=== PATIENT | male | born 1955 | race Caucasian/White ===

== ENCOUNTER 2020-12-25 08:07 | Emergency (ER) | payer MEDICARE ==
[2020-12-25 08:58] LABS: Protime INR 1.13
[2020-12-25 09:00] LABS: Absolute Lymphocytes (CBC) 1.5 K/uL (0.7-4.9); Basophils % 0.2 % (0-1.3); Hematocrit 37.9 % (39.6-49.0); Lymphocytes % 12.8 % (15.3-44.8); MPV 9.4 fL (7.6-11.3)
--- NOTE | 2020-12-25 09:14 | RAD REPORT ---
EXAM DESCRIPTION: CT - Head Brain Wo Cont - 12/25/2020 8:56 am CLINICAL HISTORY: Dizziness and weakness COMPARISON: None TECHNIQUE: Computed axial tomography of the head was obtained. IV contrast was not requested. All CT scans are performed using dose optimization technique as appropriate and may include automated exposure control or mA/KV adjustment according to patient size. FINDINGS: An intracranial bleed is not seen . The ventricles are normal in caliber. No extra-axial fluid collection is noted. Fluid within the sinuses/ mastoids is not seen. IMPRESSION: No acute intracranial abnormality is seen. If patient's symptoms persist MRI of the bra in would be recommended.
[2020-12-25 09:15] LABS: ALT/SGPT 15 U/L (12-78); AST/SGOT 12 U/L (15-37); Albumin 3.1 g/dL (3.4-5.0); Alkaline Phosphatase 65 U/L (45-117); BUN Blood Urea Nitrogen 29 mg/dL (7-18); Bicarbonate 22 mmol/L (21-32); Bilirubin Direct 0.3 mg/dL (0-0.2); Glucose Level 255 mg/dL (74-106); Magnesium 1.8 mg/dL (1.8-2.4); NT PRO-BNP 497 pg/mL (<125); Protein, Total 7.1 g/dL (6.4-8.2); Sodium Level 134 mmol/L (136-145); Troponin (Emerg Dept Use Only) < 0.02 ng/mL (0.0-0.045)
--- NOTE | 2020-12-25 10:10 | ER ---
Nurse's Notes [facility] Name: Isaías Baez Age: 65 yrs Sex: Male : 1955 Arrival Date: 12/25/2020 Time: 08:10 Bed 6 Private MD: Diagnosis: Syncope and collapse Presentation: 12/25 08:12 Chief complaint: Patient states: dizziness and generalized weakness since Saturday. sv Reports that his BS have been fluctuating in the 200-300s and has been taking more of his Toujeo. Stated he fell getting up to go to the bathroom on Saturday. He has lost 15 pounds since but has been actively trying to lose weight. Coronavirus screen: Client denies travel out of the [place] in the last 14 days. At this time, the client does not indicate any symptoms associated with coronavirus-19. Ebola Screen: No symptoms or risks identified at this time. Initial Sepsis Screen: Does the patient meet any 2 criteria? No. Patient's initial sepsis screen is negative. Does the patient have a suspected source of infection? No. Patient's initial sepsis screen is negative. Risk Assessment: Do you want to hurt yourself or someone else? Patient reports no desire to harm self or others. Onset of symptoms was December 23, 2020. 08:12 Method Of Arrival: Wheelchair sv 08:12 Acuity: HAROON 2 sv Triage Assessment: 08:12 General: Appears in no apparent distress. comfortable, well groomed, well developed, sv Behavior is calm, cooperative, appropriate for age. Pain: Denies pain. Neuro: Level of Consciousness is awake, alert, obeys commands, Oriented to person, place, time, situation, Moves all extremities. Full function Gait is steady, with his cane. Speech is normal. Cardiovascular: Patient's skin is warm and dry. Rhythm is sinus rhythm. Respiratory: Airway is patent Respiratory effort is even, unlabored, Respiratory pattern is regular, symmetrical. Derm: Skin is intact, Skin is pink, warm \\T\\ dry. Musculoskeletal: Range of motion: intact in all extremities. Historical: - Allergies: 08:35 Avelox; sv - Home Meds: 08:35 albuterol sulfate 2.5 mg /3 mL (0.083 %) Nebulizer nebu Q12h prn [Active]; allopurinol sv 100 mg Oral tab 1 tab once daily [Active]; carvedilol 12.5 mg oral tab daily [Active]; clopidogrel 75 mg oral tab 1 tab once daily [Active]; gabapentin 100 mg oral cap nightly [Active]; levothyroxine 100 mcg tab 1 tab once daily [Active]; lisinopril 5 mg Oral tab 1 tab once daily [Active]; omega-3 gummies 1 tab daily [Active]; pioglitazone 30 mg oral tab 1 tab once daily [Active]; rosuvastatin 20 mg oral tab 1 tab once daily [Active]; Spiriva Respimat 2.5 mcg/actuation inhalation mist daily prn [Active]; tamsulosin 0.4 mg oral cp24 1 cap once daily [Active]; Toujeo SoloStar 300 unit/mL (1.5 mL) subcutaneous inpn daily [Active]; - PMHx: 08:35 Gout; High Cholesterol; Hypertension; Hypothyroidism; Myocardial infarction; Diabetes - sv IDDM; - PSHx: 08:35 angioplasty , x3 stents; shoulder repair; cardiac stents; LLE stents x 2; RLE stent x 1;sv - Immunization history:: Flu vaccine is up to date. - Social history:: Smoking status: Patient reports use of chewing tobacco. Screenin:15 Abuse screen: Denies threats or abuse. Denies injuries from another. Nutritional sv screening: No deficits noted. Tuberculosis screening: No symptoms or risk factors identified. Fall Risk None identified. Assessment: 08:50 Reassessment: Patient appears in no apparent distress at this time. No changes from sv previously documented assessment. Patient and/or family updated on plan of care and expected duration. Pain level reassessed. Patient is alert, oriented x 3, equal unlabored respirations, skin warm/dry/pink. 10:28 Reassessment: Waiting for Dr Vaughan to input admission orders. sv 11:20 Reassessment: Called and spoke with Dr Vaughan to see about admission orders. He stated sv that Dr Claudio is supposed to be getting a hold of Dr Marquez. 11:30 Reassessment: Patient appears in no apparent distress at this time. No changes from sv previously documented assessment. Patient and/or family updated on plan of care and expected duration. Pain level reassessed. Patient is alert, oriented x 3, equal unlabored respirations, skin warm/dry/pink. Vital Signs: 08:12 BP 94 / 76; Pulse 89; Resp 16; Temp 99.1; Pulse Ox 96% ; Weight 97.98 kg; Height 5 ft. sv 9 in. (175.26 cm); Pain 0/10; 08:40 BP 113 / 72 LA Supine (auto/lg); Pulse 86; sv 08:42 BP 122 / 72 LA Sitting (auto/lg); Pulse 87; sv 08:44 BP 120 / 76 LA Standing (auto/lg); Pulse 90; sv 09:31 BP 118 / 64; Pulse 84; Resp 20; Pulse Ox 95% on R/A; sv 10:34 BP 107 / 71; Pulse 86 MON; Resp 17; Pulse Ox 95% on R/A; sv 11:24 BP 116 / 71; Pulse 79; Resp 24; Pulse Ox 95% on R/A; sv 08:12 Body Mass Index 31.90 (97.98 kg, 175.26 cm) sv 10:34 Sinus Rhythm with Occasional PVCs sv ED Course: 08:10 Patient arrived in ED. rg4 08:12 Joel Claudio MD is Attending Physician. tw4 08:12 Arm band placed on Patient placed in an exam room, on a stretcher, on teacher of the visually impaired, sv on pulse oximetry. 08:12 Patient has correct armband on for positive identification. Placed in gown. Bed in low sv position. Call light in reach. Side rails up X 1. computer analyst on. Pulse ox on. NIBP on. Door closed. Warm blanket given. Head of bed elevated. 08:22 Jessica Newman, RN is Primary Nurse. sv 08:27 ED physician to see patient. sv 08:30 Triage completed. sv 08:34 Initial lab(s) drawn, by me, sent to lab. Inserted saline lock: 20 gauge in right dh3 antecubital area, using aseptic technique. Blood collected. 08:44 EKG done, by ED staff, reviewed by Joel Claudio MD. 3 08:49 COVID-19 : Document "Date of Symptom Onset" if Symptomatic. Sent. sv 08:49 Basic Metabolic Panel Sent. sv 08:[address] via wheelchair. sv 08:50 CBC with Diff Sent. sv 08:50 LFT's Sent. sv 08:50 Magnesium Sent. sv 08:50 NT PRO-BNP Sent. sv 08:50 PT-INR Sent. sv 08:50 Troponin (emerg Dept Use Only) Sent. sv 08:50 COVID swab sent to lab. sv 09:06 Patient moved back from radiology. sv 09:06 Awaiting lab results, Awaiting radiology results. sv 09:41 CT Head Brain wo Cont Sent. sv 09:41 XRAY Chest (1 view) Sent. sv 10:08 Jasmeet Vaughan is Hospitalizing Provider. tw4 10:27 CORONAVIRUS Sent. sv Administered Medications: No medications were administered Outcome: 10:09 Decision to Hospitalize by Provider. tw4 11:59 Patient left the ED. Signatures: Jessica Newman RN RN Debbi Bae, Kelsey Simon RN 4 Edwin, Kady 3 Joel Claudio MD MD tw4
--- NOTE | 2020-12-25 10:10 | EDPHYS ---
Physician Documentation [facility] Name: Isaías Baez Age: 65 yrs Sex: Male : 1955 Arrival Date: 12/25/2020 Time: 08:10 Bed 6 Private MD: ED Physician Joel Claudio HPI: 12/25 09:50 This 65 yrs old Male presents to ER via Wheelchair with complaints of tw4 Weakness, Dizziness. 09:50 The patient presents to the emergency department with weakness of the entire body, tw4 generalized weakness. Context: occurred at home. Historical: - Allergies: 08:35 Avelox; sv - Home Meds: 08:35 albuterol sulfate 2.5 mg /3 mL (0.083 %) Nebulizer nebu Q12h prn [Active]; allopurinol sv 100 mg Oral tab 1 tab once daily [Active]; carvedilol 12.5 mg oral tab daily [Active]; clopidogrel 75 mg oral tab 1 tab once daily [Active]; gabapentin 100 mg oral cap nightly [Active]; levothyroxine 100 mcg tab 1 tab once daily [Active]; lisinopril 5 mg Oral tab 1 tab once daily [Active]; omega-3 gummies 1 tab daily [Active]; pioglitazone 30 mg oral tab 1 tab once daily [Active]; rosuvastatin 20 mg oral tab 1 tab once daily [Active]; Spiriva Respimat 2.5 mcg/actuation inhalation mist daily prn [Active]; tamsulosin 0.4 mg oral cp24 1 cap once daily [Active]; Toujeo SoloStar 300 unit/mL (1.5 mL) subcutaneous inpn daily [Active]; - PMHx: 08:35 Gout; High Cholesterol; Hypertension; Hypothyroidism; Myocardial infarction; Diabetes - sv IDDM; - PSHx: 08:35 angioplasty , x3 stents; shoulder repair; cardiac stents; LLE stents x 2; RLE stent x 1;sv - Immunization history:: Flu vaccine is up to date. - Social history:: Smoking status: Patient reports use of chewing tobacco. ROS: 16:34 Constitutional: Negative for fever, chills, and weight loss, Eyes: Negative for injury, tw4 pain, redness, and discharge, Cardiovascular: Negative for chest pain, palpitations, and edema, Respiratory: Negative for shortness of breath, cough, wheezing, and pleuritic chest pain, Abdomen/GI: Negative for abdominal pain, nausea, vomiting, diarrhea, and constipation, Back: Negative for injury and pain, MS/Extremity: Negative for injury and deformity, Skin: Negative for injury, rash, and discoloration. 16:34 Neuro: Positive for dizziness, weakness, Negative for altered mental status, gait disturbance, headache, hearing loss, loss of consciousness, numbness, seizure activity, speech changes, syncope, near syncope, tingling, tinnitus, tremor, visual changes. Exam: 16:34 Constitutional: This is a well developed, well nourished patient who is awake, alert, tw4 and in no acute distress. Head/Face: Normocephalic, atraumatic. Chest/axilla: Normal chest wall appearance and motion. Nontender with no deformity. No lesions are appreciated. Cardiovascular: Regular rate and rhythm with a normal S1 and S2. No gallops, murmurs, or rubs. Normal PMI, no JVD. No pulse deficits. Respiratory: Lungs have equal breath sounds bilaterally, clear to auscultation and percussion. No rales, rhonchi or wheezes noted. No increased work of breathing, no retractions or nasal flaring. Abdomen/GI: Soft, non-tender, with normal bowel sounds. No distension or tympany. No guarding or rebound. No evidence of tenderness throughout. Back: No spinal tenderness. No costovertebral tenderness. Full range of motion. Skin: Warm, dry with normal turgor. Normal color with no rashes, no lesions, and no evidence of cellulitis. MS/ Extremity: Pulses equal, no cyanosis. Neurovascular intact. Full, normal range of motion. Vital Signs: 08:12 BP 94 / 76; Pulse 89; Resp 16; Temp 99.1; Pulse Ox 96% ; Weight 97.98 kg; Height 5 ft. sv 9 in. (175.26 cm); Pain 0/10; 08:40 BP 113 / 72 LA Supine (auto/lg); Pulse 86; sv 08:42 BP 122 / 72 LA Sitting (auto/lg); Pulse 87; sv 08:44 BP 120 / 76 LA Standing (auto/lg); Pulse 90; sv 09:31 BP 118 / 64; Pulse 84; Resp 20; Pulse Ox 95% on R/A; sv 10:34 BP 107 / 71; Pulse 86 MON; Resp 17; Pulse Ox 95% on R/A; sv 11:24 BP 116 / 71; Pulse 79; Resp 24; Pulse Ox 95% on R/A; sv 08:12 Body Mass Index 31.90 (97.98 kg, 175.26 cm) sv 10:34 Sinus Rhythm with Occasional PVCs sv MDM: 08:13 Patient medically screened. tw4 16:34 Data reviewed: vital signs, nurses notes, EMS record. Data reviewed: lab test tw4 result(s), cardiac enzymes, CBC, electrolytes, EKG, radiologic studies, CT scan. Data interpreted: Pulse oximetry: Interpretation: normal. Test interpretation: by ED physician or midlevel provider: ECG, plain radiologic studies. Counseling: I had a detailed discussion with the patient and/or guardian regarding: the historical points, exam findings, and any diagnostic results supporting the discharge/admit diagnosis, lab results, radiology results. 12/25 08:22 Order name: Basic Metabolic Panel tw4 12/25 08:22 Order name: CBC with Diff tw4 12/25 08:22 Order name: LFT's tw4 12/25 08:22 Order name: Magnesium tw4 12/25 08:22 Order name: NT PRO-BNP tw4 12/25 08:22 Order name: PT-INR tw4 12/25 08:22 Order name: Troponin (emerg Dept Use Only) tw4 12/25 08:37 Order name: COVID-19 : Document "Date of Symptom Onset" if Symptomatic. eb 12/25 09:02 Order name: CBC with Automated Diff; Complete Time: 09:47 EDMS 12/25 09:02 Order name: Protime (+INR); Complete Time: 09:47 EDMS 12/25 09:15 Order name: Basic Metabolic Panel; Complete Time: 09:47 EDMS 12/25 09:15 Order name: Liver (Hepatic) Function; Complete Time: 09:47 EDMS 12/25 09:15 Order name: Troponin (Emerg Dept Use Only); Complete Time: 09:47 EDMS 12/25 09:15 Order name: NT PRO-BNP; Complete Time: 09:47 EDMS 12/25 08:22 Order name: XRAY Chest (1 view) tw4 12/25 08:22 Order name: EKG; Complete Time: 08:23 tw4 12/25 08:22 Order name: Cardiac monitoring; Complete Time: 08:39 tw4 12/25 08:22 Order name: EKG - Nurse/Tech; Complete Time: 08:45 tw4 12/25 08:22 Order name: IV Saline Lock; Complete Time: 08:39 tw4 12/25 08:22 Order name: Labs collected and sent; Complete Time: 08:39 tw4 12/25 08:22 Order name: O2 Per Protocol; Complete Time: 08:39 tw4 12/25 08:22 Order name: O2 Sat Monitoring; Complete Time: 08:39 tw4 12/25 08:36 Order name: Orthostatics; Complete Time: 08:49 tw4 12/25 08:36 Order name: CT Head Brain wo Cont tw4 12/25 09:15 Order name: Magnesium; Complete Time: 09:47 EDMS 12/25 09:15 Order name: CT; Complete Time: 09:47 EDMS 12/25 10:08 Order name: CORONAVIRUS EDPR 12/25 10:42 Order name: RAD EDMS 12/25 10:53 Order name: SARS-COV-2 RT PCR EDMS Administered Medications: No medications were administered Disposition: 12/25/20 11:56 Patient has left against medical advice. Impression: Syncope and collapse. - Patients states they are going to Home. - Condition is Stable. Follow up: Private Physician; When: Upon discharge from the Emergency Department; Reason: Recheck today's complaints, Continuance of care, Re-evaluation by your physician. - Problem is new. - Symptoms have improved. Signatures: Dispatcher [employer] EDPR Jessica Newman RN RN sv Baxter, Heather, RN RN hb Wadley, Terrence, MD MD tw4 Corrections: (The following items were deleted from the chart) 11:55 10:09 Hospitalization Ordered by Jasmeet Vaughan for Observation. Preliminary diagnosis tw4 is Syncope and collapse; Dizziness and giddiness; Acute kidney failure, unspecified. Bed requested for Telemetry/MedSurg (observation). Status is Observation. Condition is Stable. Problem is new. Symptoms have improved. tw4 11:59 11:56 12/25/2020 11:56 Patients has left against medical advice. Impression: Syncope hb and collapse. Patient states they are going to Home. Condition is Stable. Follow up: Private Physician; When: Upon discharge from the Emergency Department; Reason: Recheck today's complaints, Continuance of care, Re-evaluation by your physician. Problem is new. Symptoms have improved. tw4
--- NOTE | 2020-12-25 10:42 | RAD REPORT ---
EXAM DESCRIPTION: Karmen Single View12/25/2020 9:06 am CLINICAL HISTORY: Weakness and dizziness COMPARISON: 2019 FINDINGS: The lungs appear clear of acute infiltrate. The heart is normal size IMPRESSION: No acute abnormalities displayed
[2020-12-25 12:04] VITALS: TEMP 99.1
[2020-12-25 12:08] VITALS: O2SAT 95
[2020-12-25 12:11] VITALS: BP 116/71
--- NOTE | 2020-12-26 13:15 | EKG ---
Test Date: 2020-12-25 Test Time: 08:41:24 Associate Professor: ERROL MEASUREMENT RESULTS: Intervals: Rate: 86 MI: 130 QRSD: 92 QT: 366 QTc: 437 [place]: P: 72 MI: 130 QRS: 45 T: 43 INTERPRETIVE STATEMENTS: Sinus rhythm with occasional premature ventricular complexes Otherwise normal ECG No previous ECG available for comparison Electronically Signed On 12-26-20 13:12:39 BUSINESS PROCESS SPECIALIST by Enmanuel Kelley
== END 2020-12-25 11:59 | disposition left against medical advice (07) ==
LOC: ER 08:07
DX: R55 Syncope and collapse (principal); I10 Essential (primary) hypertension; E78.00 Pure hypercholesterolemia, unspecified; E03.9 Hypothyroidism, unspecified; E11.9 Type 2 diabetes mellitus without complications; F17.220 Nicotine dependence, chewing tobacco, uncomplicated; Z20.822 Contact with and (suspected) exposure to COVID-19; Z88.6 Allergy status to analgesic agent; Z95.818 Presence of other cardiac implants and grafts
CPT/HCPCS: 93005; 85025; 80048; 36415; 83735; 85610; 80076; 84484; 83880; 70450; 71045; 99285; U0003

== ENCOUNTER 2022-03-19 05:59 | Day surgery (SDC) | payer OTHER ==
[2022-03-15 14:09] LABS: Potassium 4.6 mmol/L (3.5-5.1)
[2022-03-15 14:12] LABS: Absolute Lymphocytes (CBC) 2.2 K/uL (0.7-4.9); Lymphocytes % 38.1 % (15.3-44.8); MPV 8.9 fL (7.6-11.3); RBC Red Blood Cell Count 4.98 M/uL (4.33-5.43)
[2022-03-19] MEDS ORDERED: NA CHLORIDE 0.9% 1,000 ML ONE ×2 (06:09→09:54)
[2022-03-19] MEDS ORDERED: CEFAZOLIN/SWI 2gm 2 GM/20 ML SYR ONE (06:09)
[2022-03-19] MEDS ORDERED: THROMBIN 5000 UNITS/VIAL TOP ONE ×2 (06:43→07:40)
[2022-03-19] MEDS ORDERED: BUPIVACAINE 0.5% Inj,MDV 50 mL VIAL ONE (06:43)
[2022-03-19] MEDS ORDERED: propofoL 200 MG/20 ML VIAL IV ONE (06:51)
[2022-03-19] MEDS ORDERED: FENTANYL CITR 100 MCG/2 ML ONE ×2 (06:51→09:48)
[2022-03-19] MEDS ORDERED: MIDAZOLAM HCL 2 MG/2 ML INJ ONE (06:51)
[2022-03-19] MEDS ORDERED: LIDOCAINE 1% MPF 5 ML VIAL ONE (06:51)
[2022-03-19] MEDS ORDERED: ROCURONIUM 50 MG/5 ML VIAL IV ONE (06:51)
[2022-03-19] MEDS ORDERED: SUCCINYLCHOLINE 20 MG/ML (10 ML) IV ONE (06:56)
[2022-03-19] MEDS ORDERED: BUPIVACAINE 0.5% Inj,MDV 50 mL VIAL IJ ONE (07:40)
[2022-03-19] MEDS ORDERED: EPHEDRINE SULF 50 MG/ML VIAL ONE (08:40)
[2022-03-19] MEDS ORDERED: NS 0.9% VIAL 10 ML ONE (08:41)
[2022-03-19] MEDS ORDERED: KETOROLAC 30 MG/ML INJ ONE (08:44)
[2022-03-19] MEDS ORDERED: dexAMETHasone 10 MG/ML VIAL ONE (08:44)
[2022-03-19] MEDS ORDERED: ONDANSETRON 4 MG/2 ML VIAL ONE (08:48)
[2022-03-19] MEDS ORDERED: GLYCOPYRROLATE 0.2 MG/ML SYR ONE (09:38)
[2022-03-19] MEDS ORDERED: NEOSTIGMINE 1 MG/ML -10 ML VIAL ONE (09:40)
[2022-03-19 11:22] VITALS: BP 132/66; O2SAT 97
[2022-03-19 11:26] VITALS: TEMP 97.8
--- NOTE | 2022-03-19 12:16 | RAD REPORT ---
EXAM DESCRIPTION: RAD - Fluoroscopy <1 Hour - 03/19/2022 10:36 am CLINICAL HISTORY: DECOMPRESSION COMPARISON: Urinary Bladder dated 01/09/2019; Lumbar Spine Wo Con dated 01/23/2022 FINDINGS/IMPRESSION: Ten intraoperative fluoroscopic images were submitted for a reported posterior spinal decompression. Fluoro time: 0.1 minutes
== END 2022-03-19 11:17 | disposition home or self-care (01) ==
LOC: OR 05:59
PROVIDERS: ATTEND Orthopaedic Surgery
PROC: 00NY0ZZ Release Lumbar Spinal Cord, Open Approach (ICD-10-PCS; principal; 2022-03-19 07:00)
DX: M48.061 Spinal stenosis, lumbar region without neurogenic claudication (principal); M54.9 Dorsalgia, unspecified; I10 Essential (primary) hypertension; I25.10 Atherosclerotic heart disease of native coronary artery without angina pectoris; J44.9 Chronic obstructive pulmonary disease, unspecified; E11.9 Type 2 diabetes mellitus without complications; Z20.822 Contact with and (suspected) exposure to COVID-19
CPT/HCPCS: 85025; 80048; 36415; 82947 ×2; 63047; 63048; U0003; J2704; J2710; J0330; J2250; J3010 ×2; J1100; J0690; J7030 ×2; J2405; 76000

== ENCOUNTER 2023-05-15 15:10 | Emergency (ER) | payer OTHER ==
--- OUTSIDE RECORDS SUMMARY | 2023-05-15 15:13 | XMS REPORT | Continuity of Care Document ---
:1955 Author Organization [facility] t Address [address] [facility] [address] [place] [id number] Care Team Providers Name Role Phone Cameron Attending Clinician Unavailable Adam Attending Clinician Unavailable Cameron Admitting Clinician Unavailable Adam Admitting Clinician Unavailable Payers Payer Name Policy Type Policy Number Effective Date Expiration Date S ernie [facility] - MEDICARE [id number] COMPLETE (MEDICARE REPLACEMENT HMO) Problems This patient has no known problems. Allergies, Adverse Reactions, Alerts Allergy Allergy Status Severity Reaction(s) Onset Inactive Treating Comm ents Source Name Type Date Date Clinician nydia DA Active [facility] 06-25 00:00: [address] Medications This patient has no known medications. Procedures This patient has no known procedures. Encounters Start End Encounter Admission Attending Care Care Encounter Source Date/Time Date/Time Type Type Clinicians Facility Department ID 2023-05-07 2023-05-07 Outpatient [facility] AOSM [id number] Becky 00:00:00 00:00:00 Jhon [id number] [facility] 2023-04-21 2023-04-21 Outpatient [facility] AOS[facility] [id number] Becky 00:00:00 00:00:00 Jhon [id number] [facility] 2023-04-13 2023-04-13 Outpatient [facility] AOSM [id number] Becky 00:00:00 00:00:00 Jhon [id number] [facility] 2023-04-03 2023-04-03 Outpatient [facility] AOSM [id number] Becky 00:00:00 00:00:00 Jhon [id number] [facility] 2023-04-02 2023-04-02 Outpatient [facility] [id number] [place] 13:17:06 13:17:06 0523 [place] 2023-03-29 2023-03-29 Outpatient [facility] [id number] [place] 10:17:12 10:17:12 0519 [facility] 2023-03-28 2023-03-28 Outpatient [facility] AOSM [id number] Becky 00:00:00 00:00:00 Jhon [id number] [facility] 2023-03-28 2023-03-28 Outpatient [facility] AOSM [id number] Becky 00:00:00 00:00:00 Jhon [id number] [facility] 2023-03-25 2023-03-25 Outpatient [facility] AOS[facility] AOSM [id number] Becky 00:00:00 00:00:00 Santino [id number] [facility] e Results Test Description Test Time Test Comments Results Result Comments Source ACT-ISTAT 2019-08-15 10:23:00 Test Item Value Reference Range Interpretation Comme nts ACT-ISTAT (test code = ACTI) 296 SEC 74-137 H BASIC METABOLIC [id number] 07:48:00 Test Item Value Reference Range Interpretation Comments SODIUM (test code = 137 MMOL/L 137-145 N NA) POTASSIUM (test code = 4.6 MMOL/L 3.5-5.1 N K) CHLORIDE (test code = 102 MMOL/L 98-107 N CL) CARBON DIOXIDE (test 26 MMOL/L 22-30 N code = CO2) GLUCOSE (test code = 116 MG/DL 74-106 H GLU) BLOOD UREA NITROGEN 27 MG/DL 9-20 H (test code = BUN) GLOMERULAR FILTRATION 43 Report ing units: RATE (test code = GFR) ml/mi n/1.73 m2 (Modified MDRD Formula)Referen ce Range: > or = 6 0 ml/min/1.73 m2 CREATININE (test code 1.60 MG/DL 0.66-1.25 H = CREAT) CALCIUM (test code = 9.4 MG/DL 8.4-10.2 N CA) LIPID PROFILE (CORONARY RISK)2019-08-15 07:48:00 Test Item Value Reference Range Interpretation Comments TRIGLYCERIDES (test 631 MG/DL TRIGLYC ERIDES code = TRIG) REFERENCE RANGE:Normal: < 150 mg/dLBorderline High: 150-199 mg/dLHi gh: 200-499 mg/dLVe ry High: >=500 mg/ dL CHOLESTEROL (test code 233 MG/DL <200 = CHOL) HDL CHOLESTEROL (test 32 MG/DL 40-59 L code = HDL) LIPOPROTEIN LDL (test 116 MG/DL 0-99 H OPTIM AL.........<100 code = LDL) mg/dLNEAR OPTIMAL/ABOVE OPTIMAL........ .100-12 9 mg/dL BORDERL INE HIGH.........13 0-159 mg/dL HIGH.........16 0-189 mg/dL VERY HIGH.........>/ = 190 mg/dL [id number] 07:48:00 Test Item Value Reference Range Interpretation Comments MAGNESIUM (test code = MAG) 1.9 MG/DL 1.6-2.3 N PROTHROMBIN [id number] 07:37:00 Test Item Value Reference Range Interpretation Comments PROTHROMBIN TIME 10.4 SECONDS 9.6-11.6 N PATIENT (test code = PTP) INTERNATIONAL NORMAL 1.0 0.8-1.1 N The INR is to be RATIO (test code = used only for INR) monitoring oral anticoagulantth erap y. INDICATION I NR VALUE ---- ---- ---- -------1. Prophylaxis, de ep venous thrombos is, including high risk surgery. 2.0 - 3.0 2. Prophylaxis, deep venous thrombosis, hip surgery, treatm ent for deep venous thrombosis or pulmonary prevention of systemic emboli sm in patients wit h valvular heart disease, atrial fibrillation, tissue heart va lve, or acute myocar dial infarction. 2.0 - 3.0 3. [employer]col[employer] Mechan[employer] al prosthesis hear t valves, recurre nt systemic emboli sm. 3.0 - 4.5 Comments to Cad Application Support Specialist: WILL BRING TO LABPTT [id number] 07:37:00 Test Item Value Reference Range Interpretation Comments PTT ACTIVATED (test code = APTT) 30.5 SECONDS 22.0-33.0 N Comments to Cad Application Support Specialist: WILL BRING TO LABBASIC METABOLIC [id number] 07:37:00 Test Item Value Reference Range Interpretation Comments SODIUM (test code = 137 MMOL/L 137-145 N NA) POTASSIUM (test code = 4.6 MMOL/L 3.5-5.1 N K) CHLORIDE (test code = 102 MMOL/L 98-107 N CL) CARBON DIOXIDE (test 26 MMOL/L 22-30 N code = CO2) GLUCOSE (test code = 116 MG/DL 74-106 H GLU) BLOOD UREA NITROGEN 27 MG/DL 9-20 H (test code = BUN) GLOMERULAR FILTRATION 43 Report ing units: RATE (test code = GFR) ml/mi n/1.73 m2 (Modified MDRD Formula)Referen ce Range: > or = 6 0 ml/min/1.73 m2 CREATININE (test code 1.60 MG/DL 0.66-1.25 H = CREAT) CALCIUM (test code = 9.4 MG/DL 8.4-10.2 N CA) LIPID PROFILE (CORONARY RISK)2019-08-15 07:37:00 Test Item Value Reference Range Interpretation Comments TRIGLYCERIDES (test code = TRIG) MG/DL CHOLESTEROL (test code = CHOL) 233 MG/DL <200 HDL CHOLESTEROL (test code = HDL) 32 MG/DL 40-59 L LIPOPROTEIN LDL (test code = LDL) MG/DL 0-99 [id number] 07:37:00 Test Item Value Reference Range Interpretation Comments MAGNESIUM (test code = MAG) 1.9 MG/DL 1.6-2.3 N BASIC METABOLIC [id number] 07:33:00 Test Item Value Reference Range Interpretation Comments SODIUM (test code = 137 MMOL/L 137-145 N NA) POTASSIUM (test code = 4.6 MMOL/L 3.5-5.1 N K) CHLORIDE (test code = 102 MMOL/L 98-107 N CL) CARBON DIOXIDE (test 26 MMOL/L 22-30 N code = CO2) GLUCOSE (test code = MG/DL 74-106 GLU) BLOOD UREA NITROGEN MG/DL 9-20 (test code = BUN) GLOMERULAR FILTRATION 43 Report ing units: RATE (test code = GFR) ml/mi n/1.73 m2 (Modified MDRD Formula)Referen ce Range: > or = 6 0 ml/min/1.73 m2 CREATININE (test code 1.60 MG/DL 0.66-1.25 H = CREAT) CALCIUM (test code = MG/DL 8.7-9.7 CA) LIPID PROFILE (CORONARY RISK)2019-08-15 07:33:00 Test Item Value Reference Range Interpretation Comments TRIGLYCERIDES (test code = TRIG) MG/DL CHOLESTEROL (test code = CHOL) 233 MG/DL <200 HDL CHOLESTEROL (test code = HDL) MG/DL 40-59 LIPOPROTEIN LDL (test code = LDL) MG/DL 0-99 [id number] 07:33:00 Test Item Value Reference Range Interpretation Comments MAGNESIUM (test code = MAG) MG/DL 1.6-2.3 BASIC METABOLIC [id number] 07:31:00 Test Item Value Reference Range Interpretation Comments SODIUM (test code = NA) 137 MMOL/L 137-145 N POTASSIUM (test code = K) 4.6 MMOL/L 3.5-5.1 N CHLORIDE (test code = CL) 102 MMOL/L 98-107 N CARBON DIOXIDE (test code = CO2) MMOL/L 22-30 GLUCOSE (test code = GLU) MG/DL 74-106 BLOOD UREA NITROGEN (test code = MG/DL 9-20 BUN) GLOMERULAR FILTRATION RATE (test code = GFR) CREATININE (test code = CREAT) MG/DL 0.66-1.25 CALCIUM (test code = CA) MG/DL 8.7-9.7 LIPID PROFILE (CORONARY RISK)2019-08-15 07:31:00 Test Item Value Reference Range Interpretation Comments TRIGLYCERIDES (test code = TRIG) MG/DL CHOLESTEROL (test code = CHOL) MG/DL <200 HDL CHOLESTEROL (test code = HDL) MG/DL 40-59 LIPOPROTEIN LDL (test code = LDL) MG/DL 0-99 [id number] 07:31:00 Test Item Value Reference Range Interpretation Comments MAGNESIUM (test code = MAG) MG/DL 1.6-2.3 BASIC METABOLIC [id number] 07:30:00 Test Item Value Reference Range Interpretation Comments SODIUM (test code = NA) MMOL/L 137-145 POTASSIUM (test code = K) MMOL/L 3.5-5.1 CHLORIDE (test code = CL) 102 MMOL/L 98-107 N CARBON DIOXIDE (test code = CO2) MMOL/L 22-30 GLUCOSE (test code = GLU) MG/DL 74-106 BLOOD UREA NITROGEN (test code = MG/DL 9-20 BUN) GLOMERULAR FILTRATION RATE (test code = GFR) CREATININE (test code = CREAT) MG/DL 0.66-1.25 CALCIUM (test code = CA) MG/DL 8.7-9.7 LIPID PROFILE (CORONARY RISK)2019-08-15 07:30:00 Test Item Value Reference Range Interpretation Comments TRIGLYCERIDES (test code = TRIG) MG/DL CHOLESTEROL (test code = CHOL) MG/DL <200 HDL CHOLESTEROL (test code = HDL) MG/DL 40-59 LIPOPROTEIN LDL (test code = LDL) MG/DL 0-99 [id number] 07:30:00 Test Item Value Reference Range Interpretation Comments MAGNESIUM (test code = MAG) MG/DL 1.6-2.3 CBC W/AUTO [id number] 07:13:00 Test Item Value Reference Range Interpretation Comments WHITE BLOOD CELL (test code = 7.6 K/MM3 3.8-9.8 N WBC) RED BLOOD CELL (test code = 4.83 M/MM3 3.95-5.67 N RBC) HEMOGLOBIN (test code = HGB) 14.7 G/DL 12.4-16.7 N HEMATOCRIT (test code = HCT) 44.2 % 35.9-49.5 N MEAN CELL VOLUME (test code = 92 fL 81.7-96.1 N MCV) MEAN CELL HGB (test code = MCH) 30.4 pg 27.6-33.2 N MEAN CELL HGB CONCETRATION 33.3 % 32.9-35.5 N (test code = MCHC) RED CELL DISTRIBUTION WIDTH 13.2 % 12.1-15.2 N (test code = RDW) PLATELET COUNT (test code = 155 K/MM3 129-368 N PLT) MEAN PLATELET VOLUME (test code 10.2 fl 7.4-10.4 N = MPV) NEUTROPHIL % (test code = NT%) 55.0 % 43-75 N IMMATURE GRANULOCYTE % (test 0.5 % 0.0-2.0 N code = IG%) LYMPHOCYTE % (test code = LY%) 30.7 % 14-44 N MONOCYTE % (test code = MO%) 8.1 % 4-13 N EOSINOPHIL % (test code = EO%) 4.8 % 0-6 N BASOPHIL % (test code = BA%) 0.9 % 0-2 N NUCLEATED RBC % (test code = 0.0 % 0-1.0 N NRBC%) NEUTROPHIL # (test code = NT#) 4.15 K/mm3 2.0-7.6 N IMMATURE GRANULOCYTE # (test 0.04 x10 3/uL 0-0.03 H code = IG#) LYMPHOCYTE # (test code = LY#) 2.32 K/mm3 1.0-3.8 N MONOCYTE # (test code = MO#) 0.61 K/mm3 0.1-0.8 N EOSINOPHIL # (test code = EO#) 0.36 K/mm3 0.0-0.2 H BASOPHIL # (test code = BA#) 0.07 K/mm3 0.0-0.2 N NUCLEATED RBC # (test code = 0.00 K/mm3 0.0-0.1 N NRBC#) Notes Date/Time Note Provider Source 2019-08-15 10:45:00-00:00 [id number] [place] [address] PATIENT NAME: ARIANNA BURGOS ADMIT DATE: ACCOUNT NO: [id number] ROOM NO: AGE: 64 REPORT TYPE: CARDIAC CATHETERIZATION REPORT SEX: M ADMITTING PHYSICIAN: ATTENDING PHYSICIAN:Dmitry Stallings MD PROCEDURE DATE: 08/15/2019 CARDIOVASCULAR PROCEDURE DRYWALL MECHANIC: Dmitry Stallings MD INDICATION FOR THE PROCEDURE : Disabling left leg claudication in a patient with known severe peripheral arterial disease and pre vious right SFA stenting. ESTIMATED BLOOD LOSS: Minimal. COMPLICATIONS: None. CONTRAST: 75 mL. ANESTHESIA: Conscious sedation with Versed and f entanyl. A 1% lidocaine for local anesthesia. 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 PROCEDURE IN DETAIL: After informed consent, the patient was brought to the cardiac catheterization lab in a stable fasting nonsedated state. He was prepped and draped in the usual sterile fashion. After conscious sedation, 1% lidocaine was administered to the right common f emoral artery area for local anesthesia. A 6-Danish sheath was placed in the right common femoral using standard techniques and fluoroscopy. After hepar inization, selective first order angiogram of the right lower extremity showed patent right SFA stent with 30% residual 3-vessel runoff. The right common i liac was 45%. Abdominal arteriogram showed patent renal arteries , small abdominal aortic aneurysm. The left common iliac was 20% and follow through of the left leg was carried out that showed occlusion of the distal SFA. Up and over sheath was used and [employer] Advantage wire and placed a long sheath in the left common femoral and selective third order angiogram was ca rried out that showed 30% proximal plaquing and mid was 90% and distal 100% with slow distal flow. T here was 3-vessel runoff. Using the Trailblazer cathet er and the [place] Advantage wire, I was able to cross intraluminal all the way down to the infrapoplit eal vessels. I did selective angiograms to confirm the placement of the andrew ter. I changed the [place] Advantage wire to the Viper atherectomy wire and orbital atherectomy was carried out with the Diamondback solid at low, medium, a nd high speeds the whole calcified area that was followed by an Ultravers e balloon 7 x 100. Used that balloon and then I started a ngiograms that showed residual disease, so stenting PATIENT NAME: ARIANNA BURGOS [id number] was carried out. Two stents were placed. They we re [employer] vascular. The first one was 8 x 100 and the second one was 8 x 60 and they were overlapped. The area of overlap continued to christian w significant disease, so I postdilated first with the 7 x 100 balloon and then I used an 8 x 40 balloon at the area of most disease sylvain t continued to show less than 30% residual, but not zero, but great apposition of the stent and good distal flow. The right groin was sealed using Angio-Seal. There were no compl ications. The patient tolerated the procedure well. He was transferred back to the holding area for observation to be discharged later on to day on medical therapy and risk factor modification. Dictated By: Dmitry Stallings MD WT: CATH:LEIGH ANN/PAMELA/CRYSTAL Conf#: [id number]/DID#: [id number] Authenticated by Dmitry Stallings MD On 03/2019 01:03:47 PM at 1304 PATIENT NAME: ARIANNA BURGOS [id number] 2019-08-15 08:18:00-00:00 [id number] [place] [address] PATIENT NAME: ARIANNA BURGOS ADMIT DATE: ACCOUNT NO: [id number] ROOM NO: AGE: 64 REPORT TYPE: ELECTROCARDIOGRAM SEX: M ADMITTING PHYSICIAN: ATTENDING PHYSICIAN:Dmitry Stallings MD Order: [id number] Test Reason : PREOP Test Date/Time Stamp: SatAug 15 2019 08:18:16 Blood Pressure : / mmHG Vent. Rate : 079 BPM Atrial Rate : 079 BPM P-R Int : 132 ms QRS Dur : 086 ms QT Int : 374 ms P-R-T Axes : 060 035 011 degree s QTc Int : 428 ms Normal sinus rhythm Normal ECG When compared with ECG of 26-JUN-2015 06:00, No significant change was found Confirmed by DMITRY STALLINGS ([id number]) on 08/15/2019 11:26:06 AM Referred By: Dmitry Stallings Confirmed by:DMITRY JAIN at 1126 PATIENT NAME: ARIANNA BURGOS [id number] 2019-08-14 06:28:00-00:00 [id number] [place] [address] PATIENT NAME: ARIANNA BURGOS ADMIT DATE: ACCOUNT NO: [id number] ROOM NO: AGE: 64 REPORT TYPE: PREOP HISTORY AND PHYSICAL SEX: M ADMITTING PHYSICIAN: ATTENDING PHYSICIAN:Dmitry Stallings MD PATIENT NAME: ARIANNA BURGOS ADMIT DATE: ADMISSION DATE: 08/15/2019 ADMISSION HISTORY AND PHYSICAL DATE OF ADMISSION AND DATE OF PROCEDURE: DRYWALL MECHANIC: Dmitry Stallings MD REASON FOR ADMISSION: Sympto matic peripheral arterial disease for abdominal and bilateral selective iliofemoral angiograms and p ossible revascularization. HISTORY OF PRESENT ILLNESS: Arianna is a 64-year -old patient with known atherosclerotic cardiovascul ar disease and multiple cardiovascular risk factors who has been having worsening peripheral arterial disease symptoms, especially of the left leg. He underwent noninvasiv e workup with a lower arterial Doppler examination that showed the right ankle brachial index to be normal at 1.01 and the left ankle-brachial index to be abnormal at 0.34 suggestive of severe iliofemoral disease and infrapopliteal d isease. Given this information and the patient's previous history, he is here for abdom inal and bilateral selective angiograms from the right groin to assess for fu rther revascularization. The patient did have his last pr ocedure done on 06/25/2015 at [facility]. At that time, he received a stent in the right S FA and he had a 50% calcified plaquing of the left SFA, which was left on medical thera py. He did have a small abdominal aortic aneurysm at that time a nd 45 eccentric plaque in the proximal left SFA. It appears that he does have over the years progression of his left SFA and it appears clinicall y and by Doppler that his right SFA stent is patent, so he will be receiving angiograms followed most likely by interventional and possible revascularization possible stenting. Th e patient has known coronary artery disease also. He received stents back in 2000. His cardiac status has been stable. He has had stents in the ri ght coronary artery and in the LAD. He did have a recent nuclear stress test that showe d diagonal ischemia, the diagonal was jailed by the last LAD stent. Eject ion fraction was 42% by nuclear; however, by echo, his ejection fraction is normal at 50%. He has mild carotid disease less than 35%. He does n ot have any angina or congestive heart failure symptoms. No TIAs or strokes. PAST MEDICAL HISTORY: Remarkable for hypertensio n, hyperlipidemia, cardiomegaly, abdominal aortic aneurysm, which i s small, diabetes, gout, asbestosis, silicosis, sciatic neuropathy, pepti c ulcer disease in the past, lumbar disk disease, hypothyroidism and allergie s. PATIENT NAME: ARIANNA BURGOS [id number] PAST SURGICAL HISTORY: He has had a tonsillectom y and the above mentioned procedures. SOCIAL HISTORY: The patient chews tobacco and di ps snuff. There is no history of alcohol or street drug use. FAMILY HISTORY: Positive for atherosclerotic car diovascular disease. ALLERGIES: AVELOX. MEDICATIONS: He takes insulin, metformin is on hold, carvedilol 12.5 mg daily, Actos 30 mg daily, Plavix 75 mg daily, a llopurinol 100 mg daily, Levothroid 88 mcg daily, Spiriva, aspirin 81 mg daily. REVIEW OF SYSTEMS: Remarkable for fatigue, insom claudy, allergies, decreased hearing, cough, wheezing at times, gout, the abo ve-mentioned cardiovascular symptoms. No acute GI or symptoms. No TIAs or strokes. PHYSICAL EXAMINATION: GENERAL: Reveals a pleasant middle-aged male, in no acute distress. VITAL SIGNS: Blood pressure 130/90, pulse 78 and regular, respiratory rate 18 and unlabored, temperature afebrile. HEENT: Head, atraumatic and normocephalic. Eyes and ENT examination within normal for age. NECK: Supple. No jugular venous distention, brui ts, or lymphadenopathy. Normal upstroke. LUNGS: Decreased air entry, otherwise clear and resonant. HEART: Regular rate and rhythm with II/V I systolic ejection murmur at the left lower sternal border. No gallops. ABDOMEN: Soft, obese. No tenderness. No organome echo, no masses or bruits. EXTREMITIES: 1+ distal pulses on the right, 0 to 1+ on the left. No edema, cyanosis, or clubbing. NEUROLOGIC: Alert and oriented x3. Examination a ppears to be nonfocal. LABORATORY DATA: Pending. Noninvasive cardiovasc ular workup enclosed. IMPRESSION: This is a 64-year-old patient with s ymptomatic left lower leg claudication with most likel y severe left SFA disease. He is here for abdominal and bilateral selective tiffany ograms and possible atherectomy and stenting of the left SFA. RECOMMENDATION: The recommendation is to proceed with the above. The risks and benefits of the planned proc edures were discussed in detail with the patient and he is willing to proceed. Rest as per or ders. The patient was strongly advised again to quit tobacco, adam nue current medications, aggressive medical therapy and risk factor modification. Dictated By: Dmitry Stallings MD WT: PREOPHP:SASHA/PAMELA/CRYSTAL PATIENT NAME: ARIANNA BURGOS [id number] Conf#: [id number]/DID#: [id number] Authenticated and Edited by Dmitry Stallings MD On 08/14/19 4:14:34 PM at 1617 PATIENT NAME: ARIANNA BURGOS [id number]
--- NOTE | 2023-05-15 16:07 | RAD REPORT ---
EXAM DESCRIPTION: [facility]15[facility]23 3:54 pm CLINICAL HISTORY: Right leg pain COMPARISON: None. FINDINGS: Right common femoral, superficial femoral, greater saphenous, popliteal and right posterio r tibial veins are compressible and demonstrate augmentation. Doppler demonstrates good flow. Grayscale, color and spectral analysis performed on all vessels IMPRESSION: No evidence of deep venous thrombosis involving the right lower extremity.
--- NOTE | 2023-05-15 16:30 | EDPHYS ---
Physician Documentation [facility] Name: Isaías Baez Age: 67 yrs Sex: Male : 1955 Arrival Date: 05/15/2023 Time: 15:10 Bed 11 Private MD: ED Physician Lucian Kern HPI: 05/15 16:28 This 67 yrs old Male presents to ER via Ambulatory with complaints of Leg Pain - right. kb 16:28 The patient presents with pain. The complaints affect the right hamstring. Context: The kb problem was sustained at home, resulted from an unknown cause, the patient can partially bear weight, can ambulate using a cane. Onset: The symptoms/episode began/occurred 3 day(s) ago. Modifying factors: The symptoms are alleviated by nothing. the symptoms are aggravated by weight bearing. Associated signs and symptoms: The patient has no apparent associated signs or symptoms. Treatment prior to arrival includes: no previous treatment. Severity of symptoms: At their worst the symptoms were moderate, in the emergency department the symptoms are unchanged. The patient has not experienced similar symptoms in the past. The patient has not recently seen a physician. Pt reports pain to right posterior thigh that started upon waking 3 days ago. States he did not have any injury or fall. States the pain was worse this morning. Historical: - Allergies: 15:45 Avelox; ld1 - PMHx: 15:45 Diabetes - IDDM; Gout; Hypertension; High Cholesterol; Hypothyroidism; Myocardial ld1 infarction; - Immunization history:: Adult Immunizations up to date. - Social history:: Smoking status: Patient denies any tobacco usage or history of. Patient/guardian denies using alcohol. ROS: 16:26 Constitutional: Negative for fever, chills, and weight loss. kb 16:26 MS/extremity: Positive for pain, of the right hamstring. 16:26 All other systems are negative. Exam: 16:26 Constitutional: This is a well developed, well nourished patient who is awake, alert, kb and in no acute distress. Head/Face: Normocephalic, atraumatic. ENT: Moist Mucous membranes Cardiovascular: Regular rate and rhythm with a normal S1 and S2. No gallops, murmurs, or rubs. No pulse deficits. Respiratory: Respirations even and unlabored. No increased work of breathing. Talking in full sentences Abdomen/GI: Soft, non-tender. No distention Skin: Warm, dry with normal turgor. Normal color. Neuro: Awake and alert, GCS 15, oriented to person, place, time, and situation. Moves all extremities. Normal gait. 16:26 Back: pain, that is mild, that is moderate, of the right low back. 16:26 Musculoskeletal/extremity: Extremities: grossly normal except: noted in the right hamstring: pain, tenderness, ROM: intact in all extremities, Circulation is intact in all extremities. Sensation intact. Weight bearing: can bear weight with assistance only, uses cane. Vital Signs: 16:59 BP 136 / 79; Pulse 85; Resp 18; Temp 98.7(O); Pulse Ox 100% on R/A; ld1 MDM: 15:22 Patient medically screened. kb 16:27 Differential diagnosis: strain, dvt, sciatica. Data reviewed: vital signs, nurses kb notes. Test considered but Not performed: X-ray: x-ray considered, but pt denies injury or truama. Counseling: I had a detailed discussion with the patient and/or guardian regarding: the historical points, exam findings, and any diagnostic results supporting the discharge/admit diagnosis, radiology results, the need for outpatient follow up, a family practitioner, to return to the emergency department if symptoms worsen or persist or if there are any questions or concerns that arise at home. 05/15 15:33 Order name: US Extremity Venous Unilateral Ltd; Complete Time: 16:10 kb Administered Medications: 16:45 Drug: Dexamethasone IM 10 mg Route: IM; Site: right gluteus; 17:01 Follow up: Response: No adverse reaction; Medication administered at discharge. ss 16:45 Drug: Ketorolac IM 30 mg Route: IM; Site: left gluteus; ss 17:01 Follow up: Response: No adverse reaction; Medication administered at discharge. Disposition: 18:18 Co-signature as Attending Physician, Lucian LAMBERT was immediately available on-site ms3 in the Emergency Department for consultation in the care of the patient. Disposition Summary: 05/15/23 16:29 Discharge Ordered Location: Home kb Condition: Stable kb Diagnosis - Sciatica, right side kb Followup: kb - With: Emergency Department - When: As needed - Reason: Worsening of condition Followup: kb - With: Private Physician - When: 2 - 3 days - Reason: Recheck today's complaints, Continuance of care, Re-evaluation by your physician Discharge Instructions: - Discharge Summary Sheet kb - Sciatica, [id number] kb - Back Exercises, [id number] kb Forms: - Medication Reconciliation Form kb - Thank You Letter kb - Antibiotic Education kb - Prescription Opioid Use kb - [email or web address] kb Prescriptions: - Prednisone 20 mg Oral Tablet - take 1 tablet by ORAL route once daily for 5 days; 5 tablet; Refills: 0, kb Product Selection Permitted - orphenadrine citrate 100 mg Oral Tablet Sustained Release - take 1 tablet by ORAL route 2 times per day As needed; 20 tablet; Refills: 0, kb Product Selection Permitted Signatures: Dispatcher [employer] Kim Lewis, WOOD TILE INSTALLATION HELPER-C WOOD TILE INSTALLATION HELPER-Yenni Varner, JM RN ss Lucian Kern DO DO ms3 Tamia Kern RN RN ld1
--- NOTE | 2023-05-15 16:30 | ER ---
Nurse's Notes [facility] Name: Isaías Baez Age: 67 yrs Sex: Male : 1955 Arrival Date: 05/15/2023 Time: 15:10 Bed 11 Private MD: Diagnosis: Sciatica, right side Presentation: 05/15 15:45 Chief complaint: Patient states: Leg pain to right upper posterior leg. Coronavirus ld1 screen: At this time, the client does not indicate any symptoms associated with coronavirus-19. Ebola Screen: No symptoms or risks identified at this time. Risk Assessment: Do you want to hurt yourself or someone else? Patient reports no desire to harm self or others. Onset of symptoms was May 15, 2023. 15:45 Method Of Arrival: Ambulatory ld1 15:45 Acuity: HAROON 4 ld1 Triage Assessment: 15:45 General: Appears in no apparent distress. comfortable, Behavior is calm, cooperative, ld1 appropriate for age. Pain: Complains of pain in right leg. EENT: No signs and/or symptoms were reported regarding the EENT system. Neuro: Level of Consciousness is awake, alert, obeys commands, Oriented to person, place, time, situation. Cardiovascular: Capillary refill < 3 seconds Patient's skin is warm and dry. Respiratory: Airway is patent Respiratory effort is even, unlabored. GI: Abdomen is flat, non-distended. : No signs and/or symptoms were reported regarding the genitourinary system. Derm: No signs and/or symptoms reported regarding the dermatologic system. Musculoskeletal: No signs and/or symptoms reported regarding the musculoskeletal system. Historical: - Allergies: 15:45 Avelox; ld1 - PMHx: 15:45 Diabetes - IDDM; Gout; Hypertension; High Cholesterol; Hypothyroidism; Myocardial ld1 infarction; - Immunization history:: Adult Immunizations up to date. - Social history:: Smoking status: Patient denies any tobacco usage or history of. Patient/guardian denies using alcohol. Screenin:58 [facility] ED Fall Risk Assessment (Adult) History of falling in the last 3 months, ss including since admission No falls in past 3 months (0 pts). Abuse screen: Denies threats or abuse. Denies injuries from another. Nutritional screening: No deficits noted. Tuberculosis screening: Never had TB. Assessment: 16:58 General: Appears in no apparent distress. comfortable, Behavior is calm, cooperative. ss Pain: Complains of pain in right low back and right leg Pain currently is 7 out of 10 on a pain scale. Neuro: Level of Consciousness is awake, alert, obeys commands, Oriented to person, place, time, situation. Cardiovascular: Pulses are palpable in right posterior tibial artery and left posterior tibial artery. Respiratory: Airway is patent Respiratory effort is even, unlabored, Respiratory pattern is regular, symmetrical. Derm: Skin is intact, is healthy with good turgor, Skin is pink, warm \T\ dry. normal. Vital Signs: 16:59 BP 136 / 79; Pulse 85; Resp 18; Temp 98.7(O); Pulse Ox 100% on R/A; ld1 ED Course: 15:11 Patient arrived in ED. am2 15:22 Kim Delarosa FNP-C is [facility]. kb 15:22 Lucian Kern DO is Attending Physician. kb 15:45 Triage completed. ld1 15:45 Arm band placed on right wrist. ld1 15:56 US Extremity Venous Unilateral Ltd In Process Unspecified. EDMS 16:58 Yenni Head, RN is Primary Nurse. ss 16:58 Patient has correct armband on for positive identification. ss 16:58 No provider procedures requiring assistance completed. Patient did not have IV access ss during this emergency room visit. Administered Medications: 16:45 Drug: Dexamethasone IM 10 mg Route: IM; Site: right gluteus; ss 17:01 Follow up: Response: No adverse reaction; Medication administered at discharge. ss 16:45 Drug: Ketorolac IM 30 mg Route: IM; Site: left gluteus; ss 17:01 Follow up: Response: No adverse reaction; Medication administered at discharge. ss Medication: 16:58 VIS not applicable for this client. ss Outcome: 16:29 Discharge ordered by . kb 17:01 Discharged to home via wheelchair, with family. ss 17:01 Condition: good 17:01 Discharge instructions given to patient, family, Instructed on discharge instructions, follow up and referral plans. medication usage, Demonstrated understanding of instructions, follow-up care, medications, Prescriptions given X 2. 17:02 Patient left the ED. ss Signatures: Dispatcher [employer] EDMS Kim Delarosa FNP-C AUTOMOTIVE PROJECT ENGINEER-Ckb Yenni Head, RN RN ss Xiao Reyna am2 Tamia Kern, RN RN ld1
[2023-05-15] MEDS ORDERED: dexAMETHasone 10 MG/ML VIAL ONE (16:51)
[2023-05-15] MEDS ORDERED: KETOROLAC 30 MG/ML INJ ONE (16:51)
[2023-05-15 17:52] VITALS: BP 136/79; TEMP 98.7; O2SAT 100
== END 2023-05-15 17:02 | disposition home or self-care (01) ==
LOC: ER 15:10
DX: M54.31 Sciatica, right side (principal); Z88.6 Allergy status to analgesic agent
CPT/HCPCS: 93971; 96372; 99284; J1100